=== PATIENT | male | born 1995 | race Caucasian/White ===

== ENCOUNTER 2020-03-11 21:22 | Emergency (ER) | payer OTHER ==
[~2020-03-11] VITALS: Ht 188 cm; Wt 100.0 kg
[2020-03-11 21:23] VITALS: BP 136/86
== END 2020-03-11 22:53 | disposition home or self-care (01) ==
LOC: M ED 21:22
DX: Z20.828 Contact with and (suspected) exposure to other viral communicable diseases (principal); J02.9 Acute pharyngitis, unspecified
CPT/HCPCS: 87880; 99284; U0003